=== PATIENT | female | born 1975 | race Caucasian/White ===

== ENCOUNTER 2018-11-19 17:38 | Emergency (ER) | payer MEDICAID ==
[~2018-11-19] VITALS: Ht 160 cm; Wt 68.0 kg
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
[2018-11-19] MEDS ORDERED: methylPREDNISolone ACETATE 40 MG/ML VIAL. IM ONE (18:15)
[2018-11-19] MEDS ORDERED: LORazepam 1 MG TABLET PO ONE (18:15)
[2018-11-19] MEDS ORDERED: ORPHENADRINE CITRATE 60 MG/2 ML VIAL. IV ONE (18:15)
[2018-11-19] MEDS ORDERED: HYDR-1179 PO (18:17)
[2018-11-19] MEDS ORDERED: CYCL5TAB PO (18:17)
[2018-11-19] MEDS ORDERED: MORPHINE SULFATE 10 MG/ML SYRINGE. SQ ONE (19:00)
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
[2018-11-19] MEDS ORDERED: LORazepam 1 MG TABLET ONE (19:03)
[2018-11-19] MEDS ORDERED: KETOROLAC 60 MG/2 ML VIAL. IM ONE (19:30)
[2018-11-19] MEDS ORDERED: FAMOTIDINE 20 MG TABLET ONE (19:55)
[2018-11-19] MEDS ORDERED: FAMOTIDINE 20 MG TABLET PO ONE (20:00)
[2018-11-19] MEDS ORDERED: LIDO:MAALOX 1:1 20 ML SINGLE DOSE. PO ONE (20:00)
[2018-11-19 20:21] LABS: AMPHETAMINE/METHAMPHETAMINE NEG (NEG); BARBITURATES NEG (NEG); BENZODIAZEPINES NEG (NEG); CANNABINOIDS NEG (NEG); COCAINE NEG (NEG); METHADONE NEG (NEG); OPIATES POS (NEG); PHENCYCLIDINE NEG (NEG)
[2018-11-19 20:23] LABS: BILIRUBIN,URINE NEG (NEG); CLARITY,URINE HAZY; COLOR,URINE YELLOW; GLUCOSE,URINE NEG (NEG); NITRITE,URINE NEG (NEG); RBC,URINE OCC /HPF (0-2); UROBILINOGEN,URINE 0.2 mg/dL (0.2 mg/dL); WBC,URINE 0 /HPF (0-4)
[2018-11-19 20:24] LABS: BACTERIA,URINE 0 /HPF (0-FEW); SQUAMOUS EPITHELIAL CELL,UR OCC /LPF
[2018-11-19] MEDS ORDERED: SUCRALFATE 1 GM TABLET. PO ONE ×2 (20:45→21:00)
[2018-11-19] MEDS ORDERED: ONDANSETRON ODT 4 MG TAB.RAPDIS PO ONE (21:00)
[2018-11-19 21:20] VITALS: BP 148/71
== END 2018-11-19 21:23 | disposition home or self-care (01) ==
LOC: ER 17:38
DX: S39.012A Strain of muscle, fascia and tendon of lower back, initial encounter (principal); Z88.6 Allergy status to analgesic agent; Z88.1 Allergy status to other antibiotic agents; Z88.8 Allergy status to other drugs, medicaments and biological substances; X50.9XXA Other and unspecified overexertion or strenuous movements or postures, initial encounter; Y93.89 Activity, other specified; Y92.89 Other specified places as the place of occurrence of the external cause; Y99.8 Other external cause status
CPT/HCPCS: 36415; 72128; 72131; 80307; 81001; 96372; 96374; 99285; J1030; J1885; J2270; J2360

== ENCOUNTER 2019-04-06 11:31 | Emergency (ER) | payer SELFPAY ==
[~2019-04-06] VITALS: Ht 160 cm; Wt 68.0 kg
[~2019-04-06 11:31] MED LIST: CYCL5TAB PO; HYDR-1179 PO
[2019-04-06 11:50] VITALS: BP 142/86
[2019-04-06] MEDS ORDERED: HYDR-3165 PO (11:51)
[2019-04-06] MEDS ORDERED: PENI500T PO (11:51)
--- NOTE | 2019-04-06 11:51 | PHYS DOC ---
Past History Past Medical History: Other Past Surgical History: Appendectomy, Cholecystectomy, Hysterectomy, Other Alcohol Use: Occasionally Drug Use: Marijuana Adult General Chief Complaint Chief Complaint: DENTAL PROBLEM HPI HPI Patient is a 43-year-old female presents with right upper central incisor dental pain/gingival swelling and tenderness. Symptom onset was several days ago. Patient has contacted her dentist has an appointment to be seen in 4 days. Pain is pearly controlled with [id number] medications. No dysphonia dysphagia drooling or trismus. No other acute symptoms or complaints. [] Review of Systems Review of Systems Review symptoms as per history of present illness. All other systems were reviewed and found to be within normal limits, except as documented in this note. Allergies Allergies Allergies Coded Allergies Type Severity Reaction Last Updated Verified aspirin Allergy Severe Anaphylaxis 11/19/18 Yes tramadol Allergy Severe Shortness of Air 11/19/18 Yes clindamycin Allergy Unknown 04/06/19 Yes dexamethasone Allergy Unknown Hives 11/19/18 Yes doxycycline Allergy Unknown Hives 11/19/18 Yes levofloxacin Allergy Unknown Nausea and Vomiting 11/19/18 Yes Physical Exam Physical Exam Constitutional: Well developed, well nourished, no acute distress, non-toxic appearance. [] HENT: Normocephalic, atraumatic, bilateral external ears normal, oropharynx moist, right upper central incisor gingival swelling, dental tenderness. No dysphonia and dysphagia or drooling.. [] Eyes: PERRLA, EOMI, conjunctiva normal, no discharge. [] Neurologic: Alert and oriented X 3, normal motor function, normal sensory function, no focal deficits noted. [] Psychologic: Affect normal, judgement normal, mood normal. [] EKG EKG [] Radiology/Procedures Radiology/Procedures [] Course & Med Decision Making Course & Med Decision Making Pertinent Labs and Imaging studies reviewed. (See chart for details) Antibiotics and pain medications prescribed. Recommendations are to follow-up with dentist as scheduled.] Dragjerri Disclaimer Dragon Disclaimer This electronic medical record was generated, in whole or in part, using a voice recognition dictation system. Departure Departure: Impression: Primary Impression: Pain, dental Disposition: HOME, SELF-CARE Condition: STABLE Referrals: PCP,NO (PCP) Patient Instructions: Dental Abscess Additional Instructions: Please take medications as directed and follow up with your dentist as s cheduled. Scripts Hydrocodone Bit/Acetaminophen (NORCO 5-325 TABLET) 1 Each Tablet 1 TAB PO PRN Q6HRS PRN for PAIN, #4 TAB 0 Refills Prov: DOROTHEA BOLAND DO 04/06/19 Penicillin V Potassium (PENICILLIN V POTASSIUM) 500 Mg Tablet 1 TAB PO QID, #40 TAB Prov: DOROTHEA BOLAND DO 04/06/19 DOROTHEA BOLAND DO Apr 06, 2019 11:51
== END 2019-04-06 11:55 | disposition home or self-care (01) ==
LOC: ER 11:31
DX: K08.89 Other specified disorders of teeth and supporting structures (principal); Z90.89 Acquired absence of other organs; Z88.6 Allergy status to analgesic agent; Z88.1 Allergy status to other antibiotic agents; Z88.8 Allergy status to other drugs, medicaments and biological substances
CPT/HCPCS: 99283